=== PATIENT | female | born 1990 | race Caucasian/White ===

== ENCOUNTER 2021-08-13 14:48 | Inpatient (IN) | payer BC ==
[~2021-08-13] VITALS: Ht 175.3 cm; Wt 132.3 kg
[2021-08-13] VITALS (34 sets, daily range): BP systolic 107–163; BP diastolic 54–90; PULSE 76–114; TEMP 97.8–99
--- NOTE | 2021-08-13 14:50 | NUR ---
Patient ambulatory to LR5 with spouse, changed into gown, FHR/TOCO monitors applied. Patient states her water broke around 0400 this morning and has continued to be clear. She was checked in the office before coming here and was 1-2cm. Patient denies any vaginal bleeding, regular contractions, decreased movement. Plan of care discussed. 1520: IV started in left hand, blood obtained and to lab, LR infusing. 1530: SVE per Татьяна RODRIGUEZ and clear fluid noted. Dr. Engel called and notified and orders to start pitocin. 1545: Pitocin augmentation discussed with patient and patient verbalizes and agrees. Pitocin started at 2 mU/hr.
[2021-08-13] MEDS ORDERED: LEXAPRO 10MG10 MG PO (15:07)
[2021-08-13] MEDS ORDERED: PRENATAL TABLET PO (15:07)
[2021-08-13 15:37] LABS: BASO % 0.2 % (0.0-2.0); EOS # 0.1 K/mm3 (0.0-0.7); EOS % 0.4 % (0.0-4.0); GRAN # 13.4 K/mm3 (1.4-6.5); GRAN % 82.8 % (42.2-75.2); HEMATOCRIT 39.3 % (37.0-47.0); HEMOGLOBIN 13.3 g/dl (12.5-16.0); LYMPH # 1.9 K/mm3 (1.2-3.4); LYMPH % 11.8 % (20.0-51.0); MEAN CELL VOLUME 84 fl (80.0-100.0); MEAN CORPUSCULAR HEMOGLOBIN 28 pg (27-31); MEAN CORPUSCULAR HGB CONC 34 g/dl (33.0-37.0); MEAN PLATELET VOLUME 11.8 fl (7.4-10.4); MONO # 0.7 K/mm3 (0.1-0.6); MONO % 4.4 % (1.7-9.3); PLATELET COUNT 217 K/mm3 (130-400); REDCELL DISTRIBUTION WIDTH-CV 14.2 % (11.5-14.5)
--- NOTE | 2021-08-13 17:45 | NUR ---
Patient requesting epidural at this time and [employer] notified. 1753: Patient sitting up for epidural and difficulty tracing FHR due maternal position. 1759: Single shot given and patient tolerates well. 1805: Patient repsitioned and safety precautions/plan of care discussed.
--- NOTE | 2021-08-13 20:15 | NUR ---
TOCO DIFFICULT TO TRACE. TOCO ADJUSTED. CARE ONGOING.
--- NOTE | 2021-08-13 22:40 | NUR ---
2230 - PUSHING INSTRUCTIONS GIVEN AND PATIENT VERBALIZES UNDERSTANDING. 2235 - PATIENT PUSHING WITH CONTRACTIONS. DECENT MATERNAL EFFORT. 2240 - PROLONGED DECEL WITH PUSHING. PATIENT REPOSITIONED TO LL. EFM RETURNS TO BASELINE. 2255 - ROLES,MD CALLED - SEE PHYSICIAN NOTIFICATION. CARE ONGOING.
--- NOTE | 2021-08-13 23:05 | NUR ---
2305 - PATIENT PUSHING WITH CONTRACTIONS. GOOD MATERNAL EFFORT. 2310 - MD CODY AT BEDSIDE. PATIENT CONTINUES PUSHING WITH CONTRACTIONS. 2320 - PATIENT CONTINUES PUSHING WITH CONTRACTIONS. MD CODY APPIES VACUUM. 2323 - VACUUM ASSISTED DELIVERY OF . HEAD FOLLOWED BY BODY. NURSERY ASSUMES CARE OF INFANT. 2326 - DELIVERY OF INTACT PLACENTA. FUNDAL MASSAGE PERFORMED BY MD CODY. PITOCIN BOLUS INITIATED. 2330 - REPAIR OF 2ND DEGREE LAC PERFORMED BY MD CODY. CHAZ CARE PERFORMED BY RN. ICE PACK PAD APPLIED. CARE ONGOING.
[2021-08-14] VITALS (10 sets, daily range): BP systolic 119–139; BP diastolic 65–86; PULSE 58–92; TEMP 97.5–98.8
[2021-08-14] MEDS ORDERED: IBU800 M1 PO (09:07)
--- NOTE | 2021-08-14 09:43 | NUR ---
Initial visit; Patient thanked Soil Technologist for offering congratulations and God's blessings for the of her son. Soil Technologist thanked patient for choosing [facility].
[2021-08-15 04:56] VITALS: BP 138/74; PULSE 87; TEMP 98.5
[2021-08-15 07:00] VITALS: BP 128/66; PULSE 70; TEMP 98.8
--- NOTE | 2021-08-15 15:00 | NUR ---
1020DISCHARGE INSTRUCTIONS REVIEWED WITH PATIENT BY Sary POTTER RN. PATIENT VERBALIZED UNDERSTANDING. WILL NOTIFY NURSING STAF WHEN READY TO LEAVE. 1100ALL PERSONAL BELONGINGS GATHERED FROM PATIENT ROOM. PATIENT LEFT AMBULATORY AND IN NO APPARENT DISTRESS, ACCOMPANIED BY SPOUSE AND Mir SEBASTIAN.
== END 2021-08-15 11:00 | disposition home or self-care (01) | DRG 807 ==
LOC: LDR 14:48 → OB 14:48
PROVIDERS: ADMIT Obstetrics & Gynecology
PROC: 10D07Z6 Extraction of Products of Conception, Vacuum, Via Natural or Artificial Opening (ICD-10-PCS; principal; 2021-08-14)
PROC: 0KQM0ZZ Repair Perineum Muscle, Open Approach (ICD-10-PCS; 2021-08-14)
DX: O99.284 Endocrine, nutritional and metabolic diseases complicating childbirth (principal); Z37.0 Single live birth; E03.9 Hypothyroidism, unspecified; O99.344 Other mental disorders complicating childbirth; F41.9 Anxiety disorder, unspecified; F32.A Depression, unspecified; O99.214 Obesity complicating childbirth; O69.81X0 Labor and delivery complicated by cord around neck, without compression, not applicable or unspecified; O76 Abnormality in fetal heart rate and rhythm complicating labor and delivery; O70.1 Second degree perineal laceration during delivery; Z3A.37 37 weeks gestation of pregnancy
CPT/HCPCS: J0290; J2590; J7120

== ENCOUNTER 2023-02-01 22:36 | Inpatient (IN) | payer BC ==
[~2023-02-01] VITALS: Ht 175.3 cm; Wt 137.7 kg
[~2023-02-01 22:36] MED LIST: DESYREL 100MG100 MG PO; IBU800 M1 PO; LEXAPRO 10MG10 MG PO; PRENATAL TABLET PO
[2023-02-01 23:00] VITALS: BP 126/66; PULSE 103; TEMP 98.2
[2023-02-01 23:30] VITALS: PULSE 99
[2023-02-02] VITALS (28 sets, daily range): BP systolic 97–1116; BP diastolic 47–74; PULSE 83–105; TEMP 98–98.4
[2023-02-02 00:17] LABS: BASO # 0.1 K/mm3 (0.0-0.2); BASO % 0.3 % (0.0-2.0); EOS # 0.1 K/mm3 (0.0-0.7); EOS % 0.5 % (0.0-4.0); GRAN # 11.2 K/mm3 (1.4-6.5); GRAN % 74.6 % (42.2-75.2); HEMATOCRIT 40.9 % (37.0-47.0); HEMOGLOBIN 13.3 g/dl (12.5-16.0); LYMPH # 2.9 K/mm3 (1.2-3.4); LYMPH % 19.4 % (20.0-51.0); MEAN CELL VOLUME 85 fl (80.0-100.0); MEAN CORPUSCULAR HEMOGLOBIN 28 pg (27-31); MEAN CORPUSCULAR HGB CONC 33 g/dl (33.0-37.0); MEAN PLATELET VOLUME 10.4 fl (7.4-10.4); MONO # 0.7 K/mm3 (0.1-0.6); MONO % 4.5 % (1.7-9.3); PLATELET COUNT 218 K/mm3 (130-400); RED BLOOD COUNT 4.81 M/mm3 (4.10-5.30); REDCELL DISTRIBUTION WIDTH-CV 15.9 % (11.5-14.5)
--- NOTE | 2023-02-02 00:35 | NUR ---
0022- PATIENT ASSISTED TO SIDE OF BED. DIFFICULTY TRACING HEART TONES DUE TO MATERNAL POSITIONING. PULSE OX APPLIED. 0023- GERMÁN BURNHAM EXPLAINS PROCEDURE AND RISK OF EPIDURAL 0028- SINGLE SHOT ADMINISTERED BY GERMÁN BURNHAM. SEE ANESTHESIA RECORDS. 0035- PATIENT REPOSITIONED IN SEMIFOWLERS. PLAN OF CARE AND SAFETY PRECAUTIONS EXPLAINED.
--- NOTE | 2023-02-02 02:04 | NUR ---
0204- DIFFICULTY TRACING HEART TONES DUE TO MOTHERS POSITON. MONITORS ADJUSTED.
--- NOTE | 2023-02-02 06:26 | NUR ---
0312- PATIENT SVE COMPLETE/-2. PATIENT POSITIONED IN FOOTPLATES AND PUSHING DISCUSSED. QUESTIONS ANSWERED. PATIENT BEGINS COACHED PUSHING WITH CONTRACTIONS. 0333- ARAGON REMOVED. PERICARE PROVIDED. 0350- DR. ADKINS AT BEDSIDE TO ASSESS PROGRESS. 0352- START PITOCIN AT 2MU PER DR. ADKINS. 0415- DIFFICULTY TRACING HEART TONES DUE TO MATERNAL POSITONING AND PUSHING EFFORTS. 0430- DIFFICULTY TRACING HEART TONES DUE TO MATERNAL POSITONING AND PUSHING EFFORTS. 0440- DR. ADKINS AT BEDSIDE TO ASSESS PROGRESS. BEGINS PUSHING WITH PATIENT. 0445- BED BROKEN DOWN FOR DELIVERY. 0451- SPONTANEOUS VAGINAL DELIVERY OF VIABLE BABY GIRL. CORD CLAMPED BY DR. ADKINS CUT BY FOB. BABY TO MOTHER ABDOMEN. DRIED AND STIMULATED. BABY CARES ASSUMED BY Rodney SYED RN. 0455- SPONTANEOUS DELIVERY OF INTACT PLACENTA THROUGH 1ST DEGREE LACERATION. STARTED PITOCIN AT 333ML/HR. PER PROTOCOL. DR. ADKINS BEGINS REPAIR OF 1ST DEGREE LACERATION. 0500- RECOVERY STARTED.
--- NOTE | 2023-02-02 10:00 | NUR ---
PT UP USING FARZAD STEADY. PAD AND PANTIES PLACED. PT MOVED TO PP ROOM AT THIS TIME. COMFORTABLE IN BED. WILL NOTIFY RN WHEN SHE HAS TO VOID.
[2023-02-03] MEDS ORDERED: IBU600 MG PO (08:39)
--- NOTE | 2023-02-03 09:09 | NUR ---
Patient is sitting in fowlers position in bed nursing baby, in football hold. Mom denies any pain, lochia is soaking less than 1 pad an hour. she had urinated after catherter was removed, and has also had a BM. Mom and baby and being discharged today 02/03
[2023-02-03 09:21] VITALS: BP 121/68; PULSE 72; TEMP 98
== END 2023-02-03 10:25 | disposition home or self-care (01) | DRG 807 ==
LOC: LDRO 22:36 → LDR 23:23 → OB 02-02 16:08
PROVIDERS: Obstetrics & Gynecology; ADMIT Obstetrics & Gynecology
PROC: 10E0XZZ Delivery of Products of Conception, External Approach (ICD-10-PCS; principal; 2023-02-02)
PROC: 0HQ9XZZ Repair Perineum Skin, External Approach (ICD-10-PCS; 2023-02-02)
DX: O99.344 Other mental disorders complicating childbirth (principal); Z37.0 Single live birth; F41.9 Anxiety disorder, unspecified; F32.A Depression, unspecified; Z3A.39 39 weeks gestation of pregnancy; O99.214 Obesity complicating childbirth; O70.0 First degree perineal laceration during delivery; G47.00 Insomnia, unspecified
CPT/HCPCS: J2795; J7120